=== PATIENT | male | born 1955 | race Caucasian/White ===

== ENCOUNTER 2021-09-03 11:22 | Outpatient (REF) | payer MEDICARE, MEDICAID, SELFPAY ==
[2021-09-03 13:05] LABS: COVID-19 Test Negative (Negative)
== END 2021-09-03 11:23 | disposition home or self-care (01) ==
LOC: HO.LAB 11:22
PROVIDERS: Visit Provider Internal Medicine
DX: Z20.822 Contact with and (suspected) exposure to COVID-19 (principal)
CPT/HCPCS: 36415; 87635; C9803

== ENCOUNTER 2023-07-04 13:58 | Outpatient (AMB) | payer MEDICARE, SELFPAY ==
--- NOTE | 2023-07-04 14:00 | A.OFFVIS_ITS ---
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 He reports back injury and left ankle fracture in 2013 after he fell off the roof 35 feet down. This was repaired with 26 pieces of metal which was later removed due to pain per patient. He also had multiple back surgeries, including bilateral L4-L5, L5-S1 laminectomy, triple foraminotomy. Patient reports he has been on chronic medical pain management through [facility], [facility] and [facility] where he completed physical therapy, multiple back injections and opioid therapy. He states being on Dilauded 4 mg 8x per day for 20 years and with provider change he was switched to Belbuca in December 2021 with current dose of Belbuca 300 mcg BID. This allows him to be more functional and less symptomatic. Patient reports his current provider is leaving practice in July therefore patient is looking for a provider to take over his opiod prescribing. I have informed patient that our office does not offer opioid prescribing. Patient also has widespread pain consistent with fibromyalgia and has failed gabapentin, Lyrica, and duloxetine. Patient reports he has underwent diagnostic lumbar medial branch blocks and was recommended to repeat these for potential RFA. We also discussed peripheral nerve stimulation trial with Sprint device. Denies any fever, weight loss, abdominal or groin pain, bladder or bowel dysfunction or saddle anesthesia. Reports periodic tripping and has upcoming cervical spine imaging to rule out cervical disc herniation. Location Back and left ankle, fibromyalgia Duration Chronic pain for 30+ years Characteristics of symptom or complaint Aching, spasming, shooting, numbness and tingling, cramping Aggravating or associated factors Any movement, walking, standing, prolonged sitting, cold weather changes Relieving factors Belbuca, Aspirin, soaking in hot tub, resting, heat therapy Treatment PT- no improvement, multiple back injections-various results [facility] Medical History (Updated 07/07/23 @ 15:38 by HONEY Cope) Fibromyalgia Muscle spasm of back Chronic pain syndrome Lumbar degenerative disc disease Lumbar post-laminectomy syndrome Surgical History (Updated 07/07/23 @ 15:33 by HONEY Cope) History of back surgery Social History Alcohol intake: never Tobacco use type: Cigarette Cigarette Packs Per Day: 1 Review of Systems Const All systems reviewed & are unremarkable except as noted in HPI and below Physical Exam Vital Signs: Last Vital Signs Pulse 77 07/04/23 14:12 BP 163/76 H 07/04/23 14:12 Pulse Ox 96 07/04/23 14:12 Oxygen Delivery Method Room Air 07/04/23 14:12 BMI result Body Mass Index 28.0 General: Appears afebrile. Alert and oriented. Mood and affect appropriate. Follows and participates in conversation appropriately. Respiratory effort is unlabored. No cough. Able to transition from sit to stand unassisted. Ambulates with bilaterally normal heel strike and toe off, but feels unbalanced on the left side due to prior left ankle fracture s/p repair and left knee pain Neck Neck: Yes no lymphadenopathy, Yes supple, No anterior neck swelling and Yes no JVD Back/Spine/Pelvis Other: Patient is able to walk and stand on heels and tip toes with moderate difficulty on the left demonstrating good motor tone on the right, mildly decreased on the right. Antalgic gait with mild limping, favoring right side. Can flex forward to 60-70 degrees and extend to 5-10 degrees before experiencing lumbar pain. De monstrates 5/5 right and 4/5 right strength of quadriceps bilaterally as well as flexion/dorsiflexion of bilateral feet against resistance. 2+ pedal pulses bilaterally. Seated straight leg rise with dorsiflexion negative bilaterally. Diminished patellar and achilles reflexes bilaterally. Facet loading test positive bilaterally. Fili sign, Bro?s, Pelvic compression and Stinchfield tests are positive bilaterally. No groin pain with I/E hip rotations. Cervical Spine: cervical muscular tenderness, pain with cervical ROM, cervical spasm and No Cervical spine tenderness Thoracic/Lumbar Spine: thoracic and lumbar spine normal to inspection, Thoracic/lumbar spine scar(s), Lasegue's sign negative, straight leg raise negative bilaterally, pain with thoraco-lumbar ROM, paraspinal muscle tenderness on the left greater than right, thoraco-lumbar ROM limited, No thoracic spinal tenderness and lumbar spinal tenderness (L3-S1) Pelvis: buttock tenderness bilaterally Sacroiliac joints: bilaterally tender to palpation Assessment & Plan Assessment & Plan (1) Lumbar post-laminectomy syndrome: Code(s): M96.1 - Postlaminectomy syndrome, not elsewhere classified (2) Lumbar degenerative disc disease: Code(s): M51.36 - Other intervertebral disc degeneration, lumbar region (3) Chronic pain syndrome: Code(s): G89.4 - Chronic pain syndrome (4) Muscle spasm of back: Code(s): M62.830 - Muscle spasm of back (5) Fibromyalgia: Comment: Fibromyalgia-patient has tried and failed gabapentin, duloxetine and Lyrica. I encouraged him to try to remain physically active and consider CBT and aqua therapy. 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 Unfortunately, we do not offer opioid prescribing at this time. Discussed interventional treatments for chronic back pain, including neuromodulation with PNS vs SCS trials, RFA, ITDD pain pump trial. We will request previous back imaging from [facility] prior to interventional therapy. Informational pamphelts for Sprint PNS trial provided to patient. All questions and concerns have been answered and patient agreed with the plan. Follow up as needed. 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
[2023-07-04 14:12] VITALS: BP 163/76; PULSE 77; O2SAT 96; BMI 28.0
== END 2023-07-04 15:01 | disposition home or self-care (01) ==
PROVIDERS: PCP Nurse Practitioner Family; Referring Provider Nurse Practitioner Family; Visit Provider Nurse Practitioner Family
DX: M96.1 Postlaminectomy syndrome, not elsewhere classified (principal); M51.36 Other intervertebral disc degeneration, lumbar region; G89.4 Chronic pain syndrome; M62.830 Muscle spasm of back; M79.7 Fibromyalgia; Z79.891 Long term (current) use of opiate analgesic
CPT/HCPCS: 99204

== ENCOUNTER → 2023-07-04 13:58 | Outpatient (BNVA) | payer MEDICARE, SELFPAY | PROVIDERS: Visit Provider Nurse Practitioner Family | DX: M96.1 Postlaminectomy syndrome, not elsewhere classified (principal); M51.36 Other intervertebral disc degeneration, lumbar region; M62.830 Muscle spasm of back; M79.7 Fibromyalgia; G89.4 Chronic pain syndrome; Z79.891 Long term (current) use of opiate analgesic | CPT/HCPCS: 99202 ==